=== PATIENT | female | born 1955 | race Caucasian/White ===

== ENCOUNTER 2019-10-01 18:28 | Inpatient (IN) | payer MEDICARE ==
[~2019-10-01] VITALS: Ht 157.5 cm; Wt 91.2 kg
--- OUTSIDE RECORDS SUMMARY | ~2019-10-01 | XMS | Clinical Summary ---
Demographics + + + | Address | [address] | | | [place] [address] | + + + | Home Phone | | + + + | Preferred Language | Unknown | + + + | Marital Status | Single | + + + | Holiness Affiliation | Unknown | + + + | Race | Unknown | + + + | Ethnic Group | Unknown | + + + Author + + + | Author | [facility] (Historical as of | | | 01-06-19) | + + + | Organization | [facility] (Historical as of | | | 01-06-19) | + + + | Address | Unknown | + + + | Phone | Unavailable | + + + Support + + +---------+ + | Name | Relationship | Address | Phone | + + +---------+ + | Nemo Hanson | ECON | Unknown | | + + +---------+ + Care Team Providers + +------+ + | Care Polarity Tester Name | Role | Phone | + +------+ + PP | Unavailable | + +------+ + Allergies Not on File Current Medications Not on file Active Problems Not on file Social History + +-------+ +--------+------+ | Tobacco Use | Types | Packs/Day | Years | Date | | | | | Used | | + +-------+ +--------+------+ | Never Assessed | | | | | + +-------+ +--------+------+ + + + | Sex Assigned at | Date Recorded | | | | + + + | Not on file | | + + + Plan of Treatment Not on file Results Not on filefrom Last 3 Months"
--- OUTSIDE RECORDS SUMMARY | ~2019-10-01 | XMS | Encounter Summary ---
Demographics + + + | Address | [address] | | | [place] [address] | + + + | Home Phone | | + + + | Preferred Language | Unknown | + + + | Marital Status | | + + + | Roman Catholic Affiliation | Unknown | + + + | Race | Unknown | + + + | Ethnic Group | Unknown | + + + Author + + + | Author | [facility] | | | and [place] | + + + | Organization | [facility] | | | and [place] | + + + | Address | Unknown | + + + | Phone | Unavailable | + + + Support + + +---------+ + | Name | Relationship | Address | Phone | + + +---------+ + | Desmond Hawkins | ECON | Unknown | | + + +---------+ + Care Team Providers + +------+ + | Care Speech Language Pathologist Travel Name | Role | Phone | + +------+ + PCP | Unavailable | + +------+ + Encounter Details +--------+ + + + + | Date | Type | Department | Care Team | Description | +--------+ + + + + | 07/24/ | Hospital | [facility] | Andrew Villar, | | | 1994 | Encounter | MED CTR XRAY [address] | | | | | Re[place] Chappell | [address] | | | | | [place] [address] | [place] [address] | | | | | [phone] | [phone] | | | | | | | | +--------+ + + + + Social History + +-------+ +--------+------+ | Tobacco [...] on file | | + + + + + + + | Job Start Date | Occupation | Industry | + + + + | Not on file | Not on file | Not on file | + + + + + + + + | Travel History | Travel Start | Travel End | + + + + + + | No recent travel history available. | + + documented as of this encounter Plan of Treatment Not on filedocumented as of this encounter Visit Diagnoses Not on filedocumented in this encounter"
--- OUTSIDE RECORDS SUMMARY | ~2019-10-01 | XMS | Clinical Summary ---
Demographics + + + | Address | [address] | | | [place] [address] | + + + | Home Phone | | + + + | Preferred Language | Unknown | + + + | Marital Status | Single | + + + | Christian Affiliation | Unknown | + + + | Race | Unknown | + + + | Ethnic Group | Unknown | + + + Author + + + | Author | [email or web address] (Historical as of | | | 01-06-19) | + + + | Organization | [email or web address] (Historical as of | | | 01-06-19) [...] Team Providers + +------+ + | Care Burrer Marker Axle Name | Role | Phone | + [...]
--- OUTSIDE RECORDS SUMMARY | ~2019-10-01 | XMS | Clinical Summary ---
Demographics + + + | Address | [address] | | | [place] [address] | + + + | Home Phone | | + + + | Preferred Language | Unknown | + + + | Marital Status | | + + + | Nondenominational Affiliation | Unknown | + + + | Race | Unknown | + + + | Ethnic Group | Unknown | + + + Author + + + | Author | [facility] | | | and [place] | + + + | Organization | [facility] | | | and [place] [...] Team Providers + +------+ + | Care Software Support Engineer Name | Role | Phone | + +------+ + PCP | Unavailable | + +------+ + Allergies Not on File Medications Not on file Active Problems Not [...] recent travel history available. | + + Last Filed Vital Signs Not on file Plan of Treatment + + + + + | Health Maintenance | Due Date | Last Done | Comments | + + + + + | Vaccine: | | | | | Dtap/Tdap/Td (1 - | 5 | | | | Tdap) | | | | + + + + + | Vaccine: Zoster (1 | | | | | of 2) | 4 | | | + + + + + | Breast Cancer | | | | | Screening | 9 | | | + + + + + | Vaccine: | | | | | Pneumococcal 65+ (1 | 9 | | | | of 2 - PCV13) | | | | + + + + + | Vaccine: Influenza | | | | | (Season Ended) | 0 | | | + + + + + Results Not on filefrom Last 3 Months"
--- OUTSIDE RECORDS SUMMARY | ~2019-10-01 | XMS | Encounter Summary ---
Demographics + + + | Address | [address] | | | [place] [address] | + + + | Home Phone | | + + + | Preferred Language | Unknown | + + + | Marital Status | | + + + | Adventism Affiliation | Unknown | + + + | Race | Unknown | + + + | Ethnic Group | Unknown | + + + Author + + + | Author | [facility] | | | and [place] | + + + | Organization | [facility] | | | and [place] [...] Team Providers + +------+ + | Care Bleach Boiler Puller Name | Role | Phone | + +------+ + PCP | Unavailable | + +------+ + Encounter Details +--------+ + + + + | Date | Type | Department | Care Team | Description | +--------+ + + + + | 05/20/ | Hospital | [facility] GENERIC OP | | Cervicalgia | | 1998 | Encounter | [address] | | | [address] | | | | | | [facility] | | | | | | [address] | | | | | | [phone] | | | +--------+ + + + [...] filedocumented as of this encounter Visit Diagnoses + + | Diagnosis | + + | Cervicalgia | + + documented in this encounter"
--- OUTSIDE RECORDS SUMMARY | ~2019-10-01 | XMS | Clinical Summary ---
Demographics + + + | Address | [address] | | | [place] [address] | + + + | Home Phone | | + + + | Preferred Language | Unknown | + + + | Marital Status | | + + + | Jehovah'S Witness Affiliation | Unknown | + + + | Race | Unknown | + + + | Ethnic Group | Unknown | + + + Author + + + | Author | [facility] | | | and [place] | + + + | Organization | [facility] | | | and [place] | [...] Team Providers + +------+ + | Care Hairspring I Inspector Name | Role | Phone | + [...]
--- OUTSIDE RECORDS SUMMARY | ~2019-10-01 | XMS | Encounter Summary ---
Demographics + + + | Address | [address] | | | [place] [address] | + + + | Home Phone | | + + + | Preferred Language | Unknown | + + + | Marital Status | | + + + | Restoration Affiliation | Unknown | + + + | Race | Unknown | + + + | Ethnic Group | Unknown | + + + Author + + + | Author | [facility] | | | and [place] | + + + | Organization | [facility] | | | and [place] [...] Team Providers + +------+ + | Care Logger Name | Role | Phone | + [...] [address] | | | | | | [facility] | | | | | | [address] | | | | | | [phone] | | | +--------+ + + + [...]
--- OUTSIDE RECORDS SUMMARY | ~2019-10-01 | XMS | Encounter Summary ---
Demographics + + + | Address | [address] | | | [place] [address] | + + + | Home Phone | | + + + | Preferred Language | Unknown | + + + | Marital Status | | + + + | Scientology Affiliation | Unknown | + + + | Race | Unknown | + + + | Ethnic Group | Unknown | + + + Author + + + | Author | [facility] | | | and [place] | + + + | Organization | [facility] | | | and [place] [...] Team Providers + +------+ + | Care Yarder Puncher Name | Role | Phone | + +------+ + PCP | Unavailable | + +------+ + Encounter Details +--------+ + + + + | Date | Type | Department | Care Team | Description | +--------+ + + + + | 07/24/ | Hospital | [facility] | Andrew Villar, | | | 1994 | Encounter | MED CTR XRAY [address] | | | | | [place] | [address] | | | | | [place] [address] | [place] [address] | | | | | [phone] | [phone] | | | | | | | [...]
--- OUTSIDE RECORDS SUMMARY | ~2019-10-01 | XMS | Encounter Summary ---
Demographics + + + | Address | [address] | | | [place] [address] | + + + | Home Phone | | + + + | Preferred Language | Unknown | + + + | Marital Status | | + + + | Samaritan Affiliation | Unknown | + + + | Race | Unknown | + + + | Ethnic Group | Unknown | + + + Author + + + | Author | [facility] | | | and [place] | + + + | Organization | [facility] | | | and [place] | [...] Team Providers + +------+ + | Care Switchboard And Control Room Operator Name | Role | Phone | + +------+ + PCP | Unavailable | + +------+ + Encounter Details +--------+ + + + + | Date | Type | Department | Care Team | Description | +--------+ + + + + | 07/24/ | Hospital | [facility] | Andrew Villar, | | | 1994 | Encounter | MED CTR XRAY [address] | | | | | [place] | [address] | | | | | [place] [address] | [place] [address] | | | | | [phone] | [phone] | | | | | | | [...]
--- OUTSIDE RECORDS SUMMARY | ~2019-10-01 | XMS | Clinical Summary ---
Demographics + + + | Address | [address] | | | [place] [address] | + + + | Home Phone | | + + + | Preferred Language | Unknown | + + + | Marital Status | Single | + + + | Sabianism Affiliation | Unknown | + + + | Race | Unknown | + + + | Ethnic Group | Unknown | + + + Author + + + | Author | [facility] (Historical as of | | | 01-06-19) | + + + | Organization | [facility] (Historical as of | | | 01-06-19) [...] Team Providers + +------+ + | Care Case Management Associate Name | Role | Phone | + [...]
--- OUTSIDE RECORDS SUMMARY | ~2019-10-01 | XMS | Encounter Summary ---
Demographics + + + | Address | [address] | | | [place] [address] | + + + | Home Phone | | + + + | Preferred Language | Unknown | + + + | Marital Status | | + + + | Baptism Affiliation | Unknown | + + + | Race | Unknown | + + + | Ethnic Group | Unknown | + + + Author + + + | Author | [facility] | | | and [place] | + + + | Organization | [facility] | | | and [place] [...] Team Providers + +------+ + | Care Csm Consultant Name | Role | Phone | + [...] [address] | | | | | | [facility] | | | | | | [address] | | | | | | [phone] | | | +--------+ + + + [...]
--- OUTSIDE RECORDS SUMMARY | ~2019-10-01 | XMS | Clinical Summary ---
Demographics + + + | Address | [address] | | | [place] [address] | + + + | Home Phone | | + + + | Preferred Language | Unknown | + + + | Marital Status | | + + + | Judaism Affiliation | Unknown | + + + | Race | Unknown | + + + | Ethnic Group | Unknown | + + + Author + + + | Author | [facility] | | | and [place] | + + + | Organization | [facility] | | | and [place] [...] Team Providers + +------+ + | Care Shore Man Name | Role | Phone | + [...]
--- OUTSIDE RECORDS SUMMARY | 2019-10-01 18:30 | XMS ---
PreManage Notification: KEKE GREEN Security Urban Sociologist Events No recent Security Events currently on file CRITERIA MET - PDMP CARE PROVIDERS Hannah Bowens Nurse Practitioner: Family Current PIT CLERK PHONE: [phone] John has no Care Guidelines for this patient. E.DHeriberto VISIT COUNT (12 MO.) [address] [employer] TOTAL 2 NOTE: Visits indicate total known visits. ED/UCC VISIT TRACKING (12 MO.) 10/01/2019 18:28 [facility] [place] TYPE: Emergency COMPLAINT: - FLU SYMPTOMS 04/06/2019 19:32 [facility] [place] TYPE: Emergency DIAGNOSES: - FEVER X 2 DAYS, FALL - Acute cystitis without hematuria INPATIENT VISIT TRACKING (12 MO.) No inpatient visits to display in this time frame [id number]
[2019-10-01] MEDS ORDERED: METFORMIN HCL1000 MG PO (18:46)
[2019-10-01] MEDS ORDERED: AMARYL1 MG PO (18:46)
[2019-10-01] MEDS ORDERED: WELLBUTRIN SR200 MG PO (18:47)
[2019-10-01] MEDS ORDERED: TOUJEO SOL300 UNIT/1 SUB-Q (18:48)
[2019-10-01] MEDS ORDERED: DIFLUCAN150 MG PO (18:49)
[2019-10-01] MEDS ORDERED: SPIRONOLACTONE25 MG PO (18:50)
[2019-10-01] MEDS ORDERED: LEVOFLOXACIN500 MG PO (18:50)
[2019-10-01] MEDS ORDERED: BYSTOLIC5 MG PO (18:51)
[2019-10-01] MEDS ORDERED: IRBESARTAN300 MG PO (18:52)
[2019-10-01] MEDS ORDERED: AMARYL4 MG PO (18:52)
[2019-10-02] MEDS ORDERED: GLIMEPIRIDE4 MG PO (11:02)
[2019-10-02] MEDS ORDERED: CEPHALEXIN250 MG PO (11:03)
[2019-10-02] MEDS ORDERED: NITROFURANTOIN50 MG PO (11:06)
[2019-10-02] MEDS ORDERED: IBU-200200 MG PO (13:11)
[2019-10-02] MEDS ORDERED: VITAMIN C1000 MG PO (13:11)
[2019-10-02] MEDS ORDERED: FOLIC ACID0.8 MG PO (13:13)
[2019-10-02] MEDS ORDERED: CLARITIN10 MG PO (13:13)
[2019-10-02] MEDS ORDERED: VITAMIN B-12500 MCG PO (13:14)
[2019-10-02] MEDS ORDERED: ALPHA LIPOIC AC50 MG PO (13:14)
[2019-10-03] MEDS ORDERED: AZITHROMYCIN250 MG PO ×3 (11:30→11:34)
[2019-10-03] MEDS ORDERED: CEFPODOXIME PR200 MG PO (11:31)
== END 2019-10-03 12:40 | disposition home or self-care (01) | DRG 871 ==
LOC: ED 18:28 → CCU 21:35 → MS 21:35
PROVIDERS: ADMIT Internal Medicine
DX: A41.59 Other Gram-negative sepsis (principal); J15.0 Pneumonia due to Klebsiella pneumoniae; I10 Essential (primary) hypertension; E11.9 Type 2 diabetes mellitus without complications; M79.7 Fibromyalgia; Z79.899 Other long term (current) drug therapy; Z79.84 Long term (current) use of oral hypoglycemic drugs; Z66 Do not resuscitate; Z20.828 Contact with and (suspected) exposure to other viral communicable diseases; Z88.6 Allergy status to analgesic agent
CPT/HCPCS: 36415; 71045; 80053; 81001; 83605; 85007; 85025; 85032; 96361; 96374; 96375; 99285-25; J0692; J1650; J1815; J1885; J2405; J7030; J7121; U0002